=== PATIENT | female | born 1995 | race Caucasian/White ===

== ENCOUNTER 2018-02-23 01:38 | Emergency (ER) | payer OTHER ==
[2018-02-23] MEDS ORDERED: Ondansetron HCl/PF 4 MG/2 ML Vial ONE (01:55)
[2018-02-23 02:26] LABS: Bilirubin Negative (Negative); Blood, Urine Trace (Negative); Clarity Clear (Clear); Glucose, Urine (Dipstick) Negative (Negative); Leukocyte Negative (Negative); Nitrite Negative (Negative); Protein, Urine (Dipstick) Trace mg/dL (Neg-Trace); Specific Gravity, Urine 1.025 (1.005-1.030); Urobilinogen 0.2 mg/dL (0.2-1.0); pH, Urine 6.5 (5.0-9.0)
[2018-02-23 02:29] LABS: #Basophils 0.1 thou/uL (0.0-0.2); #Eosinphils 0.1 thou/uL (0.0-0.7); #Lymphocytes 4.1 thou/uL (1.20-3.40); #Monocytes 0.7 thou/uL (0.11-0.59); #Neutrophils 7.6 thou/uL (1.40-6.50); %Basophils 1.2 % (0.0-1.0); %Eosinophils 0.8 % (0.0-10.0); %Lymphocytes 32.5 % (21.0-51.0); %Monocytes 5.3 % (0.0-10.0); %Neutrophils 60.1 % (42.0-75.0); Hemoglobin 13.1 g/dL (12.0-16.0); Mean Corpuscular HGB CONC 35.4 g/dL (32.0-36.0); Mean Corpuscular Hemoglobin 30.9 pg (27.0-31.0); Mean Corpuscular Volume 87.3 fl (81.0-99.0); Mean Platelet Volume 6.3 fL (7.4-10.4); Platelet Count 257 thou/uL (130-400); RBC Distribution Width 10.6 % (11.5-14.5); Red Blood Cell (RBC) Count 4.24 mill/uL (4.20-5.40); White Blood Cell (WBC) Count 12.6 thou/uL (4.8-10.8)
[2018-02-23 02:38] LABS: Bacteria/HPF None Seen HPF (None Seen); Hyaline Casts/LPF 0-3 HYALINE CAST LPF (0-3 Hyaline); RBC/HPF 0-3 HPF (0-3); Squamous Epithelial 0-3 HPF (0-3); WBC/HPF 0-3 HPF (0-3)
[2018-02-23 02:44] LABS: BHCG - Serum Negative (NEGATIVE); Pregs Control Background? CLEAR/WHITE (CLR/WHITE); Pregs Control Bar Appear? YES (CONTROL BAR)
[2018-02-23 02:49] LABS: ALT (SGPT) 14 U/L (8-55); AST (SGOT) 17 U/L (5-34); Albumin 3.8 g/dL (3.5-5.0); Alkaline Phosphatase 63 U/L (40-150); Anion Gap 15 mmol/L (10-20); BUN (Urea Nitrogen) 16 mg/dL (7.0-18.7); Bilirubin, Total 0.3 mg/dL (0.2-1.2); Calc. Creatinine Clearance 0 mL/min (70-130); Calcium 9.1 mg/dL (7.8-10.44); Carbon Dioxide 20 mmol/L (22-29); Chloride 108 mmol/L (98-107); Estimated GFR-MDRD Greater than 90; Globulin 3.4 g/dL (2.4-3.5); Glucose 105 mg/dL (70-105); Lipase 15 U/L (8-78); Potassium 3.3 mmol/L (3.5-5.1); Protein, Total 7.2 g/dL (6.0-8.3); Sodium 140 mmol/L (136-145)
== END 2018-02-23 03:26 | disposition home or self-care (01) ==
LOC: SCSER 01:38
DX: R10.10 Upper abdominal pain, unspecified (principal); R11.2 Nausea with vomiting, unspecified
CPT/HCPCS: 80053; 81003; 81015; 83690; 84703; 85025; 96361; 96372; 96374; J2405

== ENCOUNTER 2019-01-17 10:43 | Emergency (ER) | payer BC, OTHER ==
[2019-01-17] MEDS ORDERED: Acetaminophen 500 MG TAB ONE (11:51)
[2019-01-17] MEDS ORDERED: diphenhydrAMINE 50 MG/ML VIAL ONE (11:51)
[2019-01-17] MEDS ORDERED: Metoclopramide HCl 10 MG/2 ML VIAL ONE (11:51)
== END 2019-01-17 14:07 | disposition home or self-care (01) ==
LOC: SCSER 10:43
DX: G43.909 Migraine, unspecified, not intractable, without status migrainosus (principal); F41.9 Anxiety disorder, unspecified; F32.9 Major depressive disorder, single episode, unspecified
CPT/HCPCS: 96365; 96366; 96375; J1200; J2765

== ENCOUNTER 2020-07-11 12:28 | Outpatient (CLI) | payer BC ==
--- NOTE | 2020-07-11 13:14 | MRI ---
Exam: Brain MRI without contrast HISTORY: Intractable migraine with aura. COMPARISON: None FINDINGS: Calvarial marrow signal intensity: Appropriate T1 signal Gradient echo sequence: No hemorrhage Brain parenchyma: No mass, mass effect or midline shift. Brain volume, age-appropriate. Cortical russo-white matter differentiation: Preserved Restricted diffusion: Central arterial flow voids are maintained. Absent restricted diffusion White matter signal intensities:No abnormal T2 or FLAIR white matter hyperintensities. Sinuses: Adequate aeration of the paranasal sinuses and mastoid air cells. IMPRESSION: Unremarkable noncontrast brain MRI.
--- NOTE | 2020-07-11 20:14 | EEG ---
DATE OF SERVICE: DESCRIPTION OF THE RECORD: The background activity is medium amplitude, 9 hertz alpha frequency. The patient remained awake throughout the study. Some mild drowsiness was noted. Hyperventilation and photic stimulation were unremarkable. No epileptiform features were present. IMPRESSION: This is a normal awake and drowsy EEG. Job ID: [id number]
== END 2020-07-11 12:29 | disposition home or self-care (01) ==
LOC: MRI 12:28 → EEG 12:29
PROVIDERS: ATTEND Psychiatry & Neurology Neurology
DX: G43.119 Migraine with aura, intractable, without status migrainosus (principal)
CPT/HCPCS: 70551; 95816